=== PATIENT | male | born 1965 | race Caucasian/White ===

== ENCOUNTER 2016-10-02 18:21 | Emergency (ER) | payer BC ==
[2016-10-02] MEDS ORDERED: Acetaminophen 325 MG Tab PO ONE (19:04)
[2016-10-02] MEDS ORDERED: Sodium Chloride 0.9% 1,000 ML IV ONE ×2 (19:04→20:01)
--- NOTE | 2016-10-02 19:08 | EDM.PDOC ---
ED HPI GENERAL MEDICAL PROBLEM - General Chief Complaint: Genitourinary Problem Stated Complaint: URGE TO URINATE BACK Time Seen by Provider: 10/02/16 18:55 Source of Information: Reports: Patient History Limitations: Reports: No Limitations - History of Present Illness INITIAL COMMENTS - FREE TEXT/NARRATIVE: Sadiq Acuna is a pleasant 51 yo male who presents with fever. Symptoms began around 0400 this morning and he noticed some associated dysuria and weak urinary stream. He denies hematuria, vomiting, abdominal pain, back pain, or penile discharge. Symptoms have acutely worsened over the past 2 hours. Patient was able to drive himself here, but since being in the ED he has developed shaking chills. He denies cough, diarrhea, sore throat, headache, known tick exposure, rash, or any symptoms otherwise. He is on no daily prescriptions and has not taken anything for his symptoms. Patient did have significant sun exposure yesterday but does not believe he sustained a bad sunburn. He drank alcohol yesterday but is not a daily alcohol user. - Related Data Allergies Allergy/AdvReac Type Severity Reaction Status Date / Time No Known Allergies Allergy Verified 10/02/16 18:53 Home Meds: Home Meds NK [No Known Home Meds] 10/02/16 [History] Past Medical History - Past Surgical History Musculoskeletal Surgical History: Reports: Arthroscopic Knee Social & Family History - Tobacco Use Smoking Status *Q: Unknown Ever Smoked - Caffeine Use Caffeine Use: Reports: Coffee - Recreational Drug Use Recreational Drug Use: No ED ROS GENERAL - Review of Systems Review Of Systems: See Below Constitutional: Reports: Fever, Chills (Rigors) HEENT: Reports: No Symptoms Respiratory: Reports: No Symptoms Cardiovascular: Reports: No Symptoms GI/Abdominal: Reports: No Symptoms : Reports: Dysuria, Urgency Musculoskeletal: Reports: No Symptoms Skin: Reports: No Symptoms Neurological: Reports: No Symptoms Psychiatric: Reports: No Symptoms ED EXAM, GI/ABD - Physical Exam Exam: See Below Exam Limited By: No Limitations General Appearance: Alert, Anxious (with shaking rigors) Ears: Normal External Exam Nose: Normal Inspection Throat/Mouth: Normal Inspection Head: Normocephalic Neck: Normal Inspection, Supple Respiratory/Chest: No Respiratory Distress, No Accessory Muscle Use Cardiovascular: Tachycardia GI/Abdominal: Soft, Non-Tender, No Distention Extremities: Normal Inspection Neurological: Alert, Oriented, Normal Cognition Skin Exam: Warm, No Rash Course - Vital Signs Last Recorded V/S: Last Vital Signs Temp 102.5 F H 10/02/16 19:52 Pulse 94 10/02/16 22:02 Resp 18 10/02/16 22:02 BP 119/53 L 10/02/16 22:02 Pulse Ox 95 10/02/16 22:02 - Orders/Labs/Meds Orders: Active Orders 24 hr Category Date Time Status CULTURE BLOOD [BC] Stat Lab 10/02/16 19:15 Received CULTURE BLOOD [BC] Stat Lab 10/02/16 20:08 Received CULTURE URINE [RM] Stat Lab 10/02/16 21:25 Received Labs: Laboratory Tests 10/02/16 10/02/16 10/02/16 Range/Units 19:13 19:20 19:20 WBC 10.1 (4.5-11.0) K/uL RBC 4.46 (4.30-5.90) M/uL Hgb 13.7 (12.0-15.0) g/dL Hct 40.1 (40.0-54.0) % MCV 90 (80-98) fL MCH 31 (27-31) pg MCHC 34 (32-36) % Plt Count 253 (150-400) K/uL Neut % (Auto) 88 H (36-66) % Lymph % (Auto) 9 L (24-44) % [place] % (Auto) 1 L (2-6) % Eos % (Auto) 2 (2-4) % Baso % (Auto) 0 (0-1) % Sodium 138 L (140-148) mmol/L Potassium 3.9 (3.6-5.2) mmol/L Chloride 102 (100-108) mmol/L Carbon Dioxide 24 (21-32) mmol/L Anion Gap 15.9 H (5.0-14.0) mmol/L BUN 12 (7-18) mg/dL Creatinine 1.2 (0.8-1.3) mg/dL Est Cr Clr Drug Dosing 73.65 mL/min Estimated GFR (MDRD) > 60 (>60) Glucose 115 H (74-106) mg/dL Lactic Acid (0.4-2.0) mmol/L Calcium 8.9 (8.5-10.1) mg/dL Total Bilirubin 1.6 H (0.2-1.0) mg/dL AST 25 (15-37) U/L ALT 24 (12-78) U/L Alkaline Phosphatase 59 (46-116) U/L Total Protein 7.6 (6.4-8.2) g/dL Albumin 3.9 (3.4-5.0) g/dL Globulin 3.7 H (2.3-3.5) g/dL Albumin/Globulin Ratio 1.1 L (1.2-2.2) Lipase (73-393) U/L Urine Color Yellow Urine Appearance Slightly cloudy Urine pH 6.0 (4.5-8.0) Ur Specific [place] 1.010 (1.008-1.030) Urine Protein Negative (NEGATIVE) mg/dL Urine Glucose (UA) Normal (NEGATIVE) mg/dL Urine Ketones Negative (NEGATIVE) mg/dL Urine Occult Blood Large (NEGATIVE) Urine Nitrite Negative (NEGAITVE) Urine Bilirubin Negative (NEGATIVE) Urine Urobilinogen Normal (NORMAL) mg/dL Ur Leukocyte Esterase Large (NEGATIVE) Urine RBC 10-20 H (0-5) Urine WBC Semi-packed H (0-5) Ur Epithelial Cells Rare Amorphous Sediment Not seen Urine Bacteria Many Urine Mucus Not seen Urine Other 10/02/16 10/02/16 10/02/16 Range/Units 19:20 19:20 21:51 WBC (4.5-11.0) K/uL RBC (4.30-5.90) M/uL Hgb (12.0-15.0) g/dL Hct (40.0-54.0) % MCV (80-98) fL MCH (27-31) pg MCHC (32-36) % Plt Count (150-400) K/uL Neut % (Auto) (36-66) % Lymph % (Auto) (24-44) % [place] % (Auto) (2-6) % Eos % (Auto) (2-4) % Baso % (Auto) (0-1) % Sodium (140-148) mmol/L Potassium (3.6-5.2) mmol/L Chloride (100-108) mmol/L Carbon Dioxide (21-32) mmol/L Anion Gap (5.0-14.0) mmol/L BUN (7-18) mg/dL Creatinine (0.8-1.3) mg/dL Est Cr Clr Drug Dosing mL/min Estimated GFR (MDRD) (>60) Glucose (74-106) mg/dL Lactic Acid 3.5 H 1.2 (0.4-2.0) mmol/L Calcium (8.5-10.1) mg/dL Total Bilirubin (0.2-1.0) mg/dL AST (15-37) U/L ALT (12-78) U/L Alkaline Phosphatase (46-116) U/L Total Protein (6.4-8.2) g/dL Albumin (3.4-5.0) g/dL Globulin (2.3-3.5) g/dL Albumin/Globulin Ratio (1.2-2.2) Lipase 109 (73-393) U/L Urine Color Urine Appearance Urine pH (4.5-8.0) Ur Specific [place] (1.008-1.030) Urine Protein (NEGATIVE) mg/dL Urine Glucose (UA) (NEGATIVE) mg/dL Urine Ketones (NEGATIVE) mg/dL Urine Occult Blood (NEGATIVE) Urine Nitrite (NEGAITVE) Urine Bilirubin (NEGATIVE) Urine Urobilinogen (NORMAL) mg/dL Ur Leukocyte Esterase (NEGATIVE) Urine RBC (0-5) Urine WBC (0-5) Ur Epithelial Cells Amorphous Sediment Urine Bacteria Urine Mucus Urine Other Meds: Medications Discontinued Medications Generic Name Dose Route Start Last Admin Trade Name Freq PRN Reason Stop Dose Admin Acetaminophen 1,000 mg 10/02/16 19:04 10/02/16 19:22 Tylenol PO 10/02/16 19:05 1,000 mg NOW ONE Administration Sodium Chloride 1,000 mls @ 1,000 mls/sec 10/02/16 19:04 10/02/16 19:28 Normal Saline IV 10/02/16 19:05 1,000 mls/sec .BOLUS ONE Administration Ceftriaxone Sodium 2 gm/ 50 mls @ 100 mls/hr 10/02/16 19:59 10/02/16 20:49 Sodium Chloride IV 10/02/16 20:28 100 mls/hr ONETIME ONE Administration Sodium Chloride 1,000 mls @ 1,000 mls/hr 10/02/16 20:01 10/02/16 20:49 Normal Saline IV 10/02/16 21:00 1,000 mls/hr .BOLUS ONE Administration Ketorolac Tromethamine 30 mg 10/02/16 20:47 10/02/16 21:22 Toradol IVPUSH 10/02/16 20:48 30 mg ONETIME ONE Administration Departure - Departure Time of Disposition: 22:30 Disposition: Home, Self-Care 01 Clinical Impression: Pyelonephritis, Pyelonephritis, acute - Discharge Information Instructions: Pyelonephritis, Adult, [id number] Referrals: PCP,None [Primary Care Provider] - Forms: ED Department Discharge Additional Instructions: Follow up with your primary care clinic in 2-3 days for reevaluation. Return to the Emergency Department with uncontrolled fevers, inability to urinate, or with worsened symptoms of any kind. - My Orders Last 24 Hours: My Active Orders 10/02/16 19:15 CULTURE BLOOD [BC] Stat 10/02/16 20:08 CULTURE BLOOD [BC] Stat 10/02/16 21:25 CULTURE URINE [RM] Stat - Assessment/Plan Last 24 Hours: My Active Orders 10/02/16 19:15 CULTURE BLOOD [BC] Stat 10/02/16 20:08 CULTURE BLOOD [BC] Stat 10/02/16 21:25 CULTURE URINE [RM] Stat Assessment:: 51 yo male, otherwise healthy, presenting with fever and shaking rigors. Urinalysis and history is consistent urinary infection that has progressed to pyelonephritis. My concern was for severe sepsis, especially with significant elevation in initial lactate. Blood and urine cultures are pending. I feel lactate was mostly elevated due to the severe rigors the patient was experiencing just prior to blood draw as repeat lactate after fluid bolus showed marked improvement. Patients symptoms and vital signs also improved significantly after interventions here. IV antibiotics given, but with the significant improvement of symptoms and patient's lack of comorbidities I feel he is appropriate for outpatient management. He will start Cipro and follow up with PCP in 2 days for reevaluation. Risk of tendinopathy with Cipro discussed. OTC antipyretics also discussed. Reasons to return to the ED discussed and understood by patient.
[2016-10-02] MEDS ORDERED: cefTRIAXone 2 GM in Sodium Chloride 0.9% 50 ML IV ONE (19:59)
[2016-10-02] MEDS ORDERED: Ketorolac 30 MG/ML SDV IVPUSH ONE (20:47)
[2016-10-02 22:02] VITALS: BP 119/53
== END 2016-10-02 22:45 | disposition home or self-care (01) ==
LOC: JP.ED 18:21
DX: N10 Acute pyelonephritis (principal)
CPT/HCPCS: 36415; 80053; 81001; 83605; 83690; 85025; 87040; 87086; 96361; 96365; 96375; 99284; A9270; J0696; J1885; J7040; J7050; 87077; 87088; 87186

== ENCOUNTER 2016-11-11 17:43 | Emergency (ER) | payer BC ==
[2016-11-11 17:51] VITALS: BP 126/75
[2016-11-11] MEDS ORDERED: Ketorolac 30 MG/ML SDV IVPUSH ONE (18:00)
[2016-11-11] MEDS ORDERED: Morphine 4 MG/ML Syringe IVPUSH ONE (18:01)
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
== END 2016-11-11 19:23 | disposition home or self-care (01) ==
LOC: JP.ED 17:43
DX: S16.1XXA Strain of muscle, fascia and tendon at neck level, initial encounter (principal); V94.9XXA Unspecified water transport accident, initial encounter; Y93.19 Activity, other involving water and watercraft
CPT/HCPCS: 70450; 72125; 72128; 96374; 96375; 99284; J1885; J2270